=== PATIENT | male | born 1990 | race Caucasian/White ===

== ENCOUNTER 2021-05-29 16:39 | Emergency (ER) | payer OTHER, SELFPAY ==
[2021-05-29 16:46] VITALS: BP 140/85; PULSE 85; RESP 15; TEMP 36.9; O2SAT 96; BMI 29.2
--- NOTE | 2021-05-29 16:59 | ED.URI ---
HPI - URI/Sore Throat <DEMETRICE Swift - Last Filed: 05/29/21 18:16> General Chief Complaint: Upper Respiratory Symptoms Stated Complaint: sore throat since tuesday Time Seen by Provider: 05/29/21 16:59 Source: patient Mode of arrival: Ambulatory History of Present Illness HPI Narrative: 30-year-old male presents to the emergency department for a sore throat for 5 days. Patient was tested for COVID on Tuesday and this was negative. Patient denies any discharge drainage coming from his throat, he denies any difficulty swallowing, denies any muffled voice, or drooling. Patient denies any difficulty breathing, fever, worsening of his symptoms, nausea or vomiting. Patient requests a strep test today he reports that he is having the test and a COVID test which were negative. Denies any shortness of breath, chest pain, endorses having a runny nose. Able to tolerate fluids by mouth: Yes Treatments prior to arrival: acetaminophen, ibuprofen, cold medicine and other (Tea and honey, Sudafed) Related Data Allergies Allergy/AdvReac Type Severity Reaction Status Date / Time No Known Drug Allergies Allergy Verified 05/29/21 16:46 Review of Systems <DEMETRICE Swift - Last Filed: 05/29/21 18:16> Review of Systems Narrative: General: denies fever, chills Head/Neck: denies headache, neck pain, endorses sore throat, and pain when he swallows Eyes: denies visual changes, eye pain Cardio: denies chest pain, palpitations Respiratory: denies shortness of breath, cough GI: denies abdominal pain, nausea, vomiting, or diarrhea : denies dysuria, hematuria MSK: denies joint pain, muscle weakness Skin: denies rash, itching Neuro: denies numbness, tingling Patient History <DEMETRICE Swift - Last Filed: 05/29/21 18:16> Social History Smoking Status: Unknown if ever smoked Smoking Status: Unknown if ever smoked alcohol intake frequency: holidays/special occasions only Substance Use Type: does not use Exam <DEMETRICE Swift - Last Filed: 05/29/21 18:16> Narrative Exam Narrative: Independently reviewed vitals signs and nursing notes. General: Awake, alert, nontoxic, no cardiorespiratory distress Head/Neck: Atraumatic, neck full range of motion, mild lymphadenopathy of his anterior cervical nodes Eyes: EOMI, conjunctiva normal Nose: nares patent, no rhinorrhea Mouth/Throat: moist mucus membranes, posterior pharynx mildly erythematous, tonsils are 2+ without exudate, patient has 1 small lesion in his oropharynx on the left side of his cheek which appears to be a area where he bit previously. There is no drainage. Cardio: Regular rate and rhythm, no peripheral edema Respiratory: respirations unlabored without wheezing, stridor, or rales. No retractions. GI: Abdomen soft, nontender MSK: Moves all extremities, neurovascularly intact Skin: Normal capillary refill, no rash Neuro: Normal speech and cognition, normal gait Initial Vital Signs Initial Vital Signs: Vital Signs Temperature 98.4 F 05/29/21 16:46 Pulse Rate 85 05/29/21 16:46 Respiratory Rate 15 05/29/21 16:46 Blood Pressure 140/85 05/29/21 16:46 Pulse Oximetry 96 05/29/21 16:46 Course <DEMETRICE Swift - Last Filed: 05/29/21 18:16> Orders Ordered: Discontinued Medications Dexamethasone (Dexamethasone 10 Mg/Ml Vial) 10 mg PO NOW ONE Stop: 05/29/21 17:16 Last Admin: 05/29/21 17:32 Dose: 10 mg Documented by: ALIDA Vital Signs Vital signs: Vital Signs - 8 hr 05/29/21 16:46 Temperature 98.4 F Pulse Rate 85 Respiratory Rate 15 Blood Pressure 140/85 Pulse Oximetry 96 [facility] - URI/Sore Throat <DEMETRICE Swift - Last Filed: 05/29/21 18:16> Lab Data Labs: Point of Care Testing Rapid Strep A Negative [facility] Narrative Medical decision making narrative: 30-year-old male presents to emergency department with pharyngitis for 5 days. Patient's strep test today was negative for strep today, his prior COVID and influenza test were also negative on Tuesday. Patient is nontoxic appearing, without significant erythema of his throat, or any other symptoms aside from a runny nose. This is most likely a viral syndrome causing a viral pharyngitis. Patient's uvula was midline on exam, no exudate on tonsils, differential includes retropharyngeal and parapharyngeal abscess although less likely, strep G or C infection, tonsillitis, postnasal drip, or submandibular abscess. Patient was given a dose of Decadron in the emergency department and understands to return to the emergency department if he has any worsening of his symptoms or if he develops a high fever. Patient Is appropriate and amenable to discharge home. Vital signs are stable on repeat examination is unremarkable. Patient has been informed of results. Patient has been given strict return to ER precautions for any new or worsening symptoms. Patient understands to follow up closely with outpatient providers as instructed. Patient understands plan and agrees to discharge home. All questions and concerns answered at this time. Discharge Plan Departure Patient Disposition: Home Clinical Impression: Pharyngitis Instructions: DI for Pharyngitis/Tonsillopharyngitis -- Adult Activity Restrictions/Additional Instructions: Patient left prior to receiving discharge instructions *What to do: *Please continue to take your regular medications as directed. [ ] New medication prescriptions sent to your pharmacy: [ ] [ ] New medication written as a paper prescription [ ] No new medications given *Please follow up with your primary care provider in 2-3 days, call for an appointment. Let them know you were seen in the Emergency Department and that we ask that you be seen in follow up. We will electronically transmit a record of today's note if your PCP is in our system *If you do not have a primary care provider please contact the [facility] Resource line at [phone]. They will ask some questions about your medical history and help get you set up with a doctor in the community. *Return to Emergency Department if you should have any new, worsening or concerning symptoms, such as [fever greater than 101F, chills, worsening pain, persistent vomiting or other bothersome symptoms]
[2021-05-29] MEDS: DEXAMETHASONE 10 MG/ML VIAL PO (17:32)
== END 2021-05-29 18:20 | disposition home or self-care (01) ==
PROVIDERS: Emergency Provider Nurse Practitioner Critical Care Medicine
DX: J02.9 Acute pharyngitis, unspecified (principal)
CPT/HCPCS: 87880; 99283; J1100

== ENCOUNTER → 2021-11-03 10:04 | Outpatient (CLI) | payer OTHER, SELFPAY ==
--- NOTE | 2021-11-03 | DI.MRI.S_ITS ---
PROCEDURE: MR SHOULDER RT W CON INDICATIONS: Right Shoulder Pain TECHNIQUE: After the administration of 12 mL of dilute intra-articular Gadolinium contrast, oblique coronal T1 and T2 spin echo with fat saturation, oblique sagittal T1 spin echo with and without fat saturation, oblique sagittal T2 fast spin echo with fat saturation, axial T1 spin echo with fat saturation through the shoulder. COMPARISON: None. FINDINGS: Image quality: Excellent. Rotator cuff: Mild T2 signal elevation throughout the supraspinatus and infraspinatus tendons at the humeral insertion sites extending to the musculotendinous junction, indicating tendinopathy. Low-grade partial-thickness intrasubstance tearing of the mid and upper subscapularis tendon at the humeral insertion site extending the musculotendinous junction. The supraspinatus, infraspinatus, and subscapularis tendons otherwise appear intact throughout. No rotator cuff muscle atrophy on sagittal images. Bones and bursae: No bone marrow contusions or fractures. Moderate acromioclavicular joint degeneration. The acromion demonstrates conventional anatomy, without an os acromiale. Capsule and soft tissues: There is undercutting of the posterosuperior labrum. The long head of the biceps tendon demonstrates normal location and morphology. The rotator interval appears normal, without fibrosis. The coracohumeral ligament is of normal thickness. No intra-articular bodies. IMPRESSION: 1. Supraspinatus and infraspinatus tendinopathy. 2. Low-grade partial-thickness tearing of the subscapularis. No full-thickness rotator cuff tear. 3. Posterosuperior glenoid labral tear. 4. Acromioclavicular joint osteoarthritis. Dictated by: Anny Maravilla M.D. on 11/03/2021 at 11:55 Approved by: Anny Maravilla M.D. on 11/03/2021 at 11:56
--- NOTE | 2021-11-03 | DI.RAD.S_ITS ---
PROCEDURE: FL SHOULDER INJECTION MR/CT RT INDICATIONS: Right Shoulder Pain COMPARISON: None. TECHNIQUE: The indications, alternatives, benefits, risks, and complications of the procedure were explained to the patient. Written informed consent was obtained and placed in the chart. The shoulder was examined fluoroscopically and a site for needle placement chosen for entry into the glenohumeral joint from an anterior approach. The skin was prepped and draped in a sterile fashion, and 1% lidocaine infiltrated from skin down to joint capsule. A spinal needle was inserted into the glenohumeral joint, and a small amount of iodinated contrast media injected to confirm intra-articular placement of the needle tip. This was followed by approximately 12 mL dilute solution of a gadolinium containing MR contrast agent. The needle was removed and a dressing was applied. The patient was given postprocedural instructions and sent to the MR suite for MR imaging. FINDINGS: A single fluoroscopic spot image demonstrates intra-articular location of injected iodinated contrast. IMPRESSION: Successful fluoroscopically guided administration of dilute Gadolinium solution into the shoulder joint for MR arthrogram. Dictated by: Cheryl Clark MD, PhD on 11/03/2021 at 12:33 Approved by: Cheryl Clark MD, PhD on 11/03/2021 at 12:33
== END ==
DX: M75.111 Incomplete rotator cuff tear or rupture of right shoulder, not specified as traumatic (principal); M19.011 Primary osteoarthritis, right shoulder; S43.491A Other sprain of right shoulder joint, initial encounter; M25.511 Pain in right shoulder
CPT/HCPCS: 23350; 73222; 77002

== ENCOUNTER 2022-04-08 20:59 | Emergency (ER) | payer OTHER, SELFPAY ==
[2022-04-08 21:40] VITALS: BP 137/77; PULSE 100; RESP 18; TEMP 36; O2SAT 99; BMI 30.7
[2022-04-08 23:32] LABS: Bacteria Urine None Seen; RBC Urine 1-5/HPF (0-5/HPF); WBC Urine None Seen (0-5/HPF)
[2022-04-09] MEDS: KETOROLAC 30 MG/ML VIAL IM (00:30)
--- NOTE | 2022-04-09 00:34 | DI.CT.S_ITS ---
PROCEDURE: CT KIDNEY URETER BLADDER (KUB) INDICATIONS: Right-sided flank pain, hematuria, eval for stone TECHNIQUE: Axial sections were acquired from the lung bases to the pubic symphysis. Coronal and sagittal reformats were performed. For radiation dose reduction, the following was used: automated exposure control, adjustment of mA and/or kV according to patient size. COMPARISON: None. FINDINGS: Image quality: Excellent. Lung bases: Unremarkable. Heart: No significant findings. URINARY: Right Kidney: No stones or hydronephrosis. Right Ureter: No hydroureter. Left Kidney: No stones or hydronephrosis. Left Ureter: No hydroureter. Bladder: Normal wall thickness. No stones. ABDOMEN: Liver: Unremarkable. Gallbladder: Within normal limits. Biliary ducts: Unremarkable. Pancreas: Unremarkable. Spleen: Unremarkable. Adrenal Glands: Unremarkable. Stomach and Bowel: Stomach, small bowel loops, and colon are unremarkable. Appendix is visualized and is within normal limits. Sigmoid diverticulosis is seen without signal colon wall thickening or mesenteric fat stranding. No abscess collection. Peritoneum: No abnormal intraperitoneal fluid. No free air. Ventral Wall: No hernia. Abdominal Nodes: No enlarged retroperitoneal or mesenteric lymph nodes. Vessels: Aorta and inferior vena cava are normal in size. PELVIS: Pelvic Organs: Unremarkable. Pelvic Nodes: Unremarkable. Miscellaneous: Small right inguinal hernia is seen containing fat only. Bones: No suspicious bony lesion. No acute vertebral body compression fracture. IMPRESSION: 1. No renal stones or hydronephrosis. No hydroureter. Normal appearing urinary bladder. 2. Normal appendix. No bowel obstruction. No free fluid or free air. Sigmoid diverticulosis without CT evidence diverticulitis. Dictated by: Paul Olivo M.D. on 04/09/2022 at 0:55 Approved by: Paul Olivo M.D. on 04/09/2022 at 0:57
--- NOTE | 2022-04-09 00:34 | ED_ITS ---
HPI - General Adult General Chief complaint: Urogenital-Male Stated complaint: thinks kidney infection Time Seen by Provider: 04/08/22 22:38 Source: patient Mode of arrival: Ambulatory Limitations: no limitations History of Present Illness HPI narrative: Patient is a 31-year-old male who is here for evaluation of concern for a kidney infection. Over the weekend the patient started taking a testosterone booster. Since then he has had pain in his lower back. He is also had urinary frequency and urgency. He is never had a urinary tract infection in the past has never had a kidney stone in the past. He also states that he is having some left eye irritation. He denies any concern about sexually transmitted infections. Related Data Allergies Allergy/AdvReac Type Severity Reaction Status Date / Time No Known Drug Allergies Allergy Verified 05/29/21 16:46 Review of Systems Constitutional Constitutional: Reports system reviewed and no additional complaints, except as documented Gastrointestinal Gastrointestinal: Reports system reviewed and no additional complaints, except as documented Genitourinary Genitourinary: Reports system reviewed and no additional complaints, except as documented Musculoskeletal Musculoskeletal: Reports system reviewed and no additional complaints, except as documented Patient History Medical History Healthy adult Social History Smoking Status: Unknown if ever smoked Smoking Status: Unknown if ever smoked alcohol intake frequency: holidays/special occasions only Substance Use Type: does not use Exam Initial Vital Signs Initial Vital Signs: Vital Signs Temperature 96.8 F L 04/08/22 21:40 Pulse Rate 100 H 04/08/22 21:40 Respiratory Rate 18 04/08/22 21:40 Blood Pressure 137/77 04/08/22 21:40 Pulse Oximetry 99 04/08/22 21:40 Oxygen Delivery Method 04/08/22 21:40 HENSC Head: normal to inspection and normocephalic Eyes Other: Mild left eye redness without drainage Resp Effort & Inspection: normal respiratory effort Cardio Rate: regular rate GI Inspection: normal to inspection Back/Spine/Pelvis Back: No CVA tenderness Neuro General: patient alert, patient awake and moves all extremities Course Orders Ordered: ED Orders 04/08/22 22:59 Urine Culture Stat Urine Microscopic Stat 04/09/22 00:34 CT kidney ureter bladder (KUB) Stat 04/09/22 00:50 Basic Metabolic Panel Stat Complete Blood Count AUTO DIFF Stat Discontinued Medications Erythromycin (Erythromycin Ophth 1 Gm Oint) 1 applic EYE-LEFT NOW ONE Stop: 04/09/22 01:28 Last Admin: 04/09/22 01:38 Dose: 1 applic Documented By: GUERRERO Ketorolac Tromethamine (Ketorolac 30 Mg/Ml Vial) 30 mg IM NOW ONE Stop: 04/09/22 00:22 Last Admin: 04/09/22 00:30 Dose: 30 mg Documented By: NR Vital Signs Vital signs: Vital Signs - 8 hr 04/08/22 21:40 Temperature 96.8 F L Pulse Rate 100 H Respiratory Rate 18 Blood Pressure 137/77 Pulse Oximetry 99 Oxygen Delivery Method Room Air Medical Decision Making Lab Data Lab results reviewed: Yes I reviewed the patient's lab results. Result diagrams: 04/09/22 00:50 04/09/22 00:50 Labs: Lab Results 04/08/22 04/09/22 04/09/22 Range/Units 22:59 00:50 00:50 WBC 9.2 (4.5-11.0) X10^3/uL RBC 5.11 (4.5-5.9) X10^6/uL Hgb 14.9 (13.5-17.5) g/dL Hct 42.8 (41-53) % MCV 83.8 (80-100) fL MCH 29.1 (26-34) PG MCHC 34.7 (30-36) % RDW 13.2 (11.6-14.8) % Plt Count 340 (150-400) X10^3/uL Neut % (Auto) 46.1 L (50-75) % Lymph % (Auto) 42.6 H (25-40) % [place] % (Auto) 6.5 (3-14) % Eos % (Auto) 3.4 (2-4) % Baso % (Auto) 1.4 (0-2) % Neut # (Auto) 4200 (6988-1566) /uL Lymph # (Auto) 3900 (7382-1144) /uL [place] # (Auto) 600 (0-900) /uL Eos # (Auto) 300 (0-450) /uL Baso # (Auto) 100 (0-100) /uL Sodium 139 (137-145) mmol/L Potassium 3.9 (3.4-5.1) mmol/L Chloride 100 (98-107) mmol/L Carbon Dioxide 29 (22-32) mmol/L BUN 12 (9-20) mg/dL Creatinine 0.89 (0.66-1.25) mg/dL Estimated GFR > 60 (>60) mL/min BUN/Creatinine Ratio 13.5 (6-22) Glucose 101 H (70-100) mg/dL Calcium 9.0 (8.4-10.2) mg/dL Urine RBC 1-5/hpf (0-5/HPF) Urine WBC None seen (0-5/HPF) Urine Bacteria None seen (None) Ur Culture Indicated? Culture not indicate Micro UA Comment * Urine Dip Bedside Urine Glucose Negative Bedside Urine Bilirubin - Negative Bedside Urine Ketone - Negative Urine Specific [place] 1.015 Bedside Urine Occult Blood + Bedside Urine pH 6.0 Bedside Urine Protein - Negative Bedside Urine Urobilinogen - Negative Bedside Urine Nitrite - Negative Bedside Urine Leukocytes - Negative Esterase Point of care testing: Urine Dip Bedside Urine Glucose Negative Bedside Urine Bilirubin - Negative Bedside Urine Ketone - Negative Urine Specific [place] 1.015 Bedside Urine Occult Blood + Bedside Urine pH 6.0 Bedside Urine Protein - Negative Bedside Urine Urobilinogen - Negative Bedside Urine Nitrite - Negative Bedside Urine Leukocytes - Negative Esterase Imaging Data CT scan - abdomen/pelvis: Radiologist's Impression: [place] [address] CT Scan Report Signed Patient: Parmjit Rodrigues Jr MR#: [id number] : 1990 Acct:[id number] Age/Sex: 31 / M Date of Service: 04/09/22 Loc: ED Accession Number: [id number] ?? Procedure: CT kidney ureter bladder (KUB) Ordering Provider: Sam Persaud D.O. PROCEDURE:? CT KIDNEY URETER BLADDER (KUB) ? INDICATIONS:? Right-sided flank pain, hematuria, eval for stone ? TECHNIQUE:? Axial sections were acquired from the lung bases to the pubic symphysis.? Coronal and sagittal reformats were performed.? For radiation dose reduction, the following was used: ?automated exposure control, adjustment of mA and/or kV according to patient size.? ? COMPARISON:? None. ? FINDINGS:? Image quality:? Excellent.? ? Lung bases:? Unremarkable.? ? Heart:? No significant findings. ? URINARY: Right Kidney:? No stones or hydronephrosis. Right Ureter:? No hydroureter. ? Left Kidney:? No stones or hydronephrosis. Left Ureter:? No hydroureter. ? Bladder:? Normal wall thickness. No stones. ? ? ? ABDOMEN: Liver:? Unremarkable.? ? Gallbladder:? Within normal limits. Biliary ducts:? Unremarkable.? ? Pancreas:? Unremarkable.? ? Spleen:? Unremarkable.? ? Adrenal Glands:? Unremarkable.? ? ? Stomach and Bowel:? Stomach, small bowel loops, and colon are unremarkable.? Appendix is visualized and is within normal limits.? Sigmoid diverticulosis is seen without signal colon wall thickening or mesenteric fat stranding.? No abscess collection. Peritoneum:? No abnormal intraperitoneal fluid.? No free air.? ? Ventral Wall: ? No hernia.? Abdominal Nodes:? No enlarged retroperitoneal or mesenteric lymph nodes.? Vessels:? Aorta and inferior vena cava are normal in size.? ? PELVIS: Pelvic Organs:? Unremarkable.? ? Pelvic Nodes: Unremarkable. Miscellaneous:? Small right inguinal hernia is seen containing fat only. ? Bones:? No suspicious bony lesion.? No acute vertebral body compression fracture. ? IMPRESSION:? 1. No renal stones or hydronephrosis.? No hydroureter.? Normal appearing urinary bladder. 2. Normal appendix.? No bowel obstruction.? No free fluid or free air.? Sigmoid diverticulosis without CT evidence diverticulitis.? ? Dictated by: Paul Olivo M.D. on 04/09/2022 at 0:55 ? ? Approved by: Paul Olivo M.D. on 04/09/2022 at 0:57?? MDM Narrative Medical decision making narrative: Patient does have hematuria but no other signs of infection. CT scan shows no signs of ureteral/kidney stones. His kidney function is unremarkable. No indication for antibiotics. No indication for further radiologic studies. Will give him erythromycin ointment for the left eye conjunctivitis. Informed him that he should follow-up with his primary doctor to discuss referral to see Urology given his hematuria. He was given return precautions. He expressed understanding and agreement. Discharge Plan Departure Patient Disposition: Home Clinical Impression: Hematuria, Conjunctivitis Instructions: DI for Hematuria Activity Restrictions/Additional Instructions: You can take Tylenol/ibuprofen for any discomfort. Be sure you are staying hydrated. You do need follow-up with your primary doctor to make sure that the blood in your urine has cleared up. This can be in the next couple weeks. Return to the emergency department for any new symptoms. Visit Report Forms: Patient Portal/API
[2022-04-09 01:02] LABS: Add Manual Diff / Slide Review NO; Basophils Absolute Auto 100 /uL (0-100); Basophils Percent Auto 1.4 % (0-2); Eosinophils Absolute Auto 300 /uL (0-450); Eosinophils Percent Auto 3.4 % (2-4); Hematocrit 42.8 % (41-53); Hemoglobin 14.9 g/dL (13.5-17.5); Lymphocytes Absolute Auto 3900 /uL (1100-4500); Lymphocytes Percent Auto 42.6 % (25-40); Mean Corpuscular HGB Conc 34.7 % (30-36); Mean Corpuscular Hemoglobin 29.1 PG (26-34); Mean Corpuscular Volume 83.8 fL (80-100); Monocytes Absolute Auto 600 /uL (0-900); Monocytes Percent Auto 6.5 % (3-14); Neutrophils Absolute Auto 4200 /uL (1500-7000); Neutrophils Percent Auto 46.1 % (50-75); Platelet Count 340 X10^3/uL (150-400); Red Blood Cell Count 5.11 X10^6/uL (4.5-5.9); Red Cell Distribution Width 13.2 % (11.6-14.8); White Blood Cell Count 9.2 X10^3/uL (4.5-11.0)
[2022-04-09 01:07] LABS: BUN Creatinine Ratio 13.5 (6-22); Blood Urea Nitrogen 12 mg/dL (9-20); Carbon Dioxide 29 mmol/L (22-32); Chloride 100 mmol/L (98-107); Estimated Glomerular Filt Rate > 60 mL/min (>60); Glucose 101 mg/dL (70-100); HEMOLYSIS 33 (0-50); Potassium 3.9 mmol/L (3.4-5.1); Sodium 139 mmol/L (137-145)
[2022-04-09] MEDS: ERYTHROMYCIN OPHTH 1 GM OINT 1 APPLIC EYE-LEFT (01:38)
== END 2022-04-09 01:45 | disposition home or self-care (01) ==
PROVIDERS: Emergency Provider Emergency Medicine
DX: R31.9 Hematuria, unspecified (principal); H10.9 Unspecified conjunctivitis; M54.50 Low back pain, unspecified
CPT/HCPCS: 74176; 80048; 81003; 81015; 85025; 87086; 96372; 99283; 99284; J1885

== ENCOUNTER 2023-11-19 12:51 | Emergency (ER) | payer OTHER, SELFPAY ==
[2023-11-19] VITALS (28 sets, daily range): BP systolic 122–149; BP diastolic 62–92; PULSE 71–96; RESP 13–42; O2SAT 92–100; BMI 33.4
--- NOTE | 2023-11-19 | DI.RAD.S_ITS ---
PROCEDURE: XR SHOULDER RT MIN 2V INDICATIONS: POST REDUCTION TECHNIQUE: 2 views of the shoulder were acquired. COMPARISON: [facility], CR, XR SHOULDER RT MIN 2V, 11/19/2023, 13:14. FINDINGS: Bones: Interval reduction of the glenohumeral joint. Persistent large fracture fragment along the posterior humeral head consistent with moderately displaced greater tuberosity fracture Soft tissues: No suspicious soft tissue calcifications. IMPRESSION: Interval reduction of the glenohumeral joint in near anatomic alignment. Persistent comminuted humeral head fracture. Dictated by: Obed Rosas M.D. on 11/19/2023 at 16:06 Approved by: Obed Rosas M.D. on 11/19/2023 at 16:09
--- NOTE | 2023-11-19 13:00 | DI.RAD.S_ITS ---
PROCEDURE: XR SHOULDER RT MIN 2V INDICATIONS: trauma TECHNIQUE: 2 views of the shoulder were acquired. COMPARISON: None. FINDINGS: Bones: There is a large fracture fragment along the posterior humerus measuring at least 6.2 centimeters involving the greater tubercle. The humeral head is positioned anteriorly and inferiorly to the glenoid fossa. No suspicious bony lesions. Visualized ribs appear intact. Soft tissues: No suspicious soft tissue calcifications. IMPRESSION: Humeral head fracture and dislocation. Dictated by: Obed Rosas M.D. on 11/19/2023 at 12:29 Approved by: Obed Rosas M.D. on 11/19/2023 at 12:36
[2023-11-19] MEDS: HYDROMORPHONE 0.5 MG INJ IV (13:11)
--- NOTE | 2023-11-19 13:46 | DI.CT.S_ITS ---
PROCEDURE: CT UE RT WO CON INDICATIONS: shoulder TECHNIQUE: Noncontrast 0.75 mm thick sections acquired from the acromioclavicular joint to the inferior scapula, with coronal and sagittal reformatting. COMPARISON: None. FINDINGS: Image quality: Excellent. Bones: There is total anterior dislocation of the humeral head positioned anteriorly and inferiorly from the glenoid fossa. Large comminuted fracture of the posterior and lateral aspect of the humeral head involving the greater tuberosity with fracture lines extending to the lesser tuberosity with the largest fracture fragment measuring 5.6 centimeters, significantly displaced. Numerous tiny osseous fragments within the fracture bed. Additional nondisplaced fracture fragments involving the lesser tuberosity. There is prominent soft tissue swelling there is a moderate effusion. IMPRESSION: Fracture dislocation of the humeral head with at least 1 significantly displaced fracture fragment. Dictated by: Obed Rosas M.D. on 11/19/2023 at 13:51 Approved by: Obed Rosas M.D. on 11/19/2023 at 14:09
--- NOTE | 2023-11-19 13:51 | ED_ITS ---
HPI - Extremity Injury (Upper) General Chief Complaint: Extremity Injury, Upper Stated Complaint: dislocation to R arm Time Seen by Provider: 11/19/23 13:46 Source: patient and EMS Mode of arrival: EMS History of Present Illness HPI narrative: Patient healthy 33-year-old male presents today with right shoulder pain. He reports that he was sliding into [employer] when he had sudden onset of right shoulder pain. He went to an urgent care they tried to reduce assuming that it was a shoulder dislocation patient reports that the pain got significantly worse during that procedure. He has no numbness or tingling in his hand no decreased range of movement of his hand but significant pain in right shoulder. No other injury Received 150 of fentanyl prior to arrival Related Data Previous Rx's Medication Instructions Recorded hydrocodone 5 mg-acetaminophen 325 1 tab PO Q6H PRN pain #10 tabs 11/19/23 mg tablet Allergies Allergy/AdvReac Type Severity Reaction Status Date / Time No Known Drug Allergies Allergy Verified 11/19/23 12:53 Patient History Medical History Healthy adult Social History Smoking Status: Former smoker Smoking Status: Former smoker alcohol intake frequency: holidays/special occasions only Substance Use Type: does not use Exam Initial Vital Signs Initial Vital Signs: Vital Signs Pulse Rate 84 11/19/23 12:53 Respiratory Rate 18 11/19/23 12:53 Blood Pressure 130/68 11/19/23 12:53 Pulse Oximetry 98 11/19/23 12:53 Oxygen Delivery Method Room Air 11/19/23 12:53 GENERAL: Alert 33-year-old male CARDIOVASCULAR: peripheral pulses in tact, cap refill <2 sec RESPIRATORY: No respiratory distress, speaks in full sentences without difficulty EXTREMITIES: Normal range of motion, no clubbing or edema. Neurovascularly intact Right shoulder in sling no clavicle step-off there shoulder AC step-off sensation in deltoid intact strong distal radial pulse good radial median and ulnar nerve sensation and movement NEUROLOGICAL: Cranial nerves II through XII grossly intact. Normal gait and speech. SKIN: Warm, dry, no petechiae, no rashes or lesions. Procedures Orthopedic Fracture Reduction Fracture #1: Time Out Performed: Yes Side: right Fracture Reduction Location: humerus Analgesia: procedural sedation Technique: traction/counter-traction Post Reduction X-rays Demonstrate: anatomical reduction Post-reduction neuro exam: intact and no change Post-reduction vascular exam: intact and no change Orthopedic Splinting/Casting Injury #1: Side: right Upper Extremity Injury Location: shoulder Upper Extremity Immobilizer: sling/shoulder immobilizer Procedural Sedation Consent signed: Yes Indication: fracture/dislocation reduction ASA Class: II Mallampati Airway Classification: Class II IV Propofol dose (mg): 105 Intraservice time/total sedation time (min): 14 ED Sedation Level: Moderate (Concious) Patient Tolerated Procedure: Well and No complications Complications: none Course Orders Ordered: ED Orders 11/19/23 13:00 XR shoulder RT min 2V Stat 11/19/23 13:46 CT UE RT wo con Stat Discontinued Medications Hydrocodone Bitart/Acetaminophen (Hydrocodone/Acet 5/325 Prepack) 1 bottle MISC DIRECTED ONE Stop: 11/19/23 17:30 Last Admin: 11/19/23 17:33 Dose: 1 bottle Documented By: ANEESH Hydromorphone HCl (Hydromorphone 0.5 Mg Inj) 0.5 mg IV NOW ONE Stop: 11/19/23 13:09 Last Admin: 11/19/23 13:11 Dose: 0.5 mg Documented By: CAMILLA Hydromorphone HCl (Hydromorphone 1 Mg Inj) 1 mg IV NOW ONE Stop: 11/19/23 13:44 Last Admin: 11/19/23 13:52 Dose: 1 mg Documented By: ANEESH Sodium Chloride (Normal Saline 0.9%) 1,000 mls @ 1,000 mls/hr IV BOLUS ONE Stop: 11/19/23 16:26 Last Infusion: 11/19/23 17:33 Dose: 0 mls/hr Documented By: Admin: 11/19/23 16:42 Dose: 1,000 mls/hr Documented By: ANEESH Propofol (Propofol 200 Mg/20 Ml Vial) 105 mg 1 mg/kg (105 mg) IV NOW ONE Stop: 11/19/23 15:28 Last Admin: 11/19/23 16:42 Dose: 105 mg Documented By: ANEESH Vital Signs Vital signs: Vital Signs - 8 hr 11/19/23 12:53 11/19/23 12:56 11/19/23 12:57 Pulse Rate 84 85 Respiratory Rate 18 Blood Pressure 130/68 130/68 Pulse Oximetry 98 99 Oxygen Delivery Method Room Air 11/19/23 13:00 11/19/23 13:00 11/19/23 13:30 Pulse Rate 87 93 H Respiratory Rate Blood Pressure 124/64 Pulse Oximetry 97 97 Oxygen Delivery Method 11/19/23 13:30 11/19/23 14:00 11/19/23 14:00 Pulse Rate 84 Respiratory Rate Blood Pressure 130/92 H 130/80 Pulse Oximetry 95 Oxygen Delivery Method 11/19/23 14:30 11/19/23 14:38 11/19/23 14:38 Pulse Rate 76 75 Respiratory Rate Blood Pressure 135/77 Pulse Oximetry 96 95 Oxygen Delivery Method 11/19/23 15:00 11/19/23 15:00 11/19/23 15:30 Pulse Rate 96 H Respiratory Rate Blood Pressure 131/76 122/80 Pulse Oximetry 94 Oxygen Delivery Method 11/19/23 15:30 11/19/23 15:50 11/19/23 15:50 Pulse Rate 87 81 Respiratory Rate 19 Blood Pressure 134/77 Pulse Oximetry 95 96 Oxygen Delivery Method 11/19/23 15:55 11/19/23 15:55 11/19/23 16:00 Pulse Rate 86 83 Respiratory Rate 21 19 Blood Pressure 135/73 Pulse Oximetry 95 92 Oxygen Delivery Method 11/19/23 16:00 11/19/23 16:05 11/19/23 16:05 Pulse Rate 71 Respiratory Rate 14 Blood Pressure 130/72 131/74 Pulse Oximetry 93 Oxygen Delivery Method 11/19/23 16:10 11/19/23 16:10 11/19/23 16:15 Pulse Rate 81 88 Respiratory Rate 15 15 Blood Pressure 146/67 H Pulse Oximetry 95 95 Oxygen Delivery Method 11/19/23 16:15 11/19/23 16:20 11/19/23 16:20 Pulse Rate 92 H Respiratory Rate 15 Blood Pressure 143/69 H 135/69 Pulse Oximetry 95 Oxygen Delivery Method 11/19/23 16:25 11/19/23 16:25 11/19/23 16:30 Pulse Rate 86 90 Respiratory Rate 14 14 Blood Pressure 149/77 H Pulse Oximetry 95 95 Oxygen Delivery Method 11/19/23 16:30 11/19/23 16:35 11/19/23 16:35 Pulse Rate 94 H Respiratory Rate 18 Blood Pressure 133/64 143/79 H Pulse Oximetry 98 Oxygen Delivery Method 11/19/23 16:40 11/19/23 16:40 11/19/23 16:42 Pulse Rate 92 H 90 Respiratory Rate 20 20 Blood Pressure 139/82 132/62 Pulse Oximetry 98 97 Oxygen Delivery Method 11/19/23 16:45 11/19/23 16:45 11/19/23 16:50 Pulse Rate 87 79 Respiratory Rate 42 H 22 Blood Pressure 132/82 Pulse Oximetry 95 100 Oxygen Delivery Method 11/19/23 16:50 11/19/23 16:55 11/19/23 16:55 Pulse Rate 83 Respiratory Rate 19 Blood Pressure 130/80 139/78 Pulse Oximetry 97 Oxygen Delivery Method 11/19/23 17:00 11/19/23 17:00 11/19/23 17:05 Pulse Rate 85 82 Respiratory Rate 18 13 Blood Pressure 135/77 Pulse Oximetry 99 99 Oxygen Delivery Method 11/19/23 17:05 11/19/23 17:10 11/19/23 17:10 Pulse Rate 81 Respiratory Rate 18 Blood Pressure 139/72 127/73 Pulse Oximetry 100 Oxygen Delivery Method MDM - Extremity Injury (Upper) Imaging Data Extremity x-ray #1: Radiologist's Impression: PROCEDURE: XR SHOULDER RT MIN 2V INDICATIONS: POST REDUCTION TECHNIQUE: 2 views of the shoulder were acquired. [facility] 13:14. FINDINGS: Bones: Interval reduction of the glenohumeral joint. Persistent large fracture fragment along the posterior humeral head consistent with moderately displaced greater tuberosity fracture Soft tissues: No suspicious soft tissue calcifications. IMPRESSION: Interval reduction of the glenohumeral joint in near anatomic alignment. Persistent comminuted humeral head fracture. Dictated by: Obed Rosas M.D. on 11/19/2023 at 16:06 Extremity x-ray #2: Radiologist's Impression: PROCEDURE: XR SHOULDER RT MIN 2V INDICATIONS: trauma TECHNIQUE: 2 views of the shoulder were acquired. COMPARISON: None. FINDINGS: Bones: There is a large fracture fragment along the posterior humerus measuring at least 6.2 centimeters involving the greater tubercle. The humeral head is positioned anteriorly and inferiorly to the glenoid fossa. No suspicious bony lesions. Visualized ribs appear intact. Soft tissues: No suspicious soft tissue calcifications. IMPRESSION: Humeral head fracture and dislocation. Dictated by: Obed Rosas M.D. on 11/19/2023 at 12:29 CT UE: Radiologist's Impression: PROCEDURE: CT UE RT WO CON INDICATIONS: shoulder TECHNIQUE: Noncontrast 0.75 mm thick sections acquired from the acromioclavicular joint to the inferior scapula, with coronal and sagittal reformatting. COMPARISON: None. FINDINGS: Image quality: Excellent. Bones: There is total anterior dislocation of the humeral head positioned anteriorly and inferiorly from the glenoid fossa. Large comminuted fracture of the posterior and lateral aspect of the humeral head involving the greater tuberosity with fracture lines extending to the lesser tuberosity with the largest fracture fragment measuring 5.6 centimeters, significantly displaced. Numerous tiny osseous fragments within the fracture bed. Additional nondisplaced fracture fragments involving the lesser tuberosity. There is prominent soft tissue swelling there is a moderate effusion. IMPRESSION: Fracture dislocation of the humeral head with at least 1 significantly displaced fracture fragment. Dictated by: Obed Rosas M.D. on 11/19/2023 at 13:51 MDM Narrative Medical decision making narrative: Patient 33-year-old male presents today with right upper arm injury. He is found to have a fracture dislocation of the right humeral head. Significant humeral head fracture. Dr. Gaines updated on patient's symptoms test results including the CT states that it is okay to be reduced recommends follow-up in clinic Patient tolerated procedure sedation and reduction well. It was easily reduced. He is now placed back in a sling. No neurovascular deficits. Discharge Plan Departure Patient Disposition: Home Clinical Impression: Anterior dislocation of right shoulder, Hill-Sachs fracture Instructions: DI for Shoulder Dislocation Activity Restrictions/Additional Instructions: *You have been diagnosed with right shoulder dislocation Hill-Sachs fracture *What to do: At this time keep arm in sling. You may need to sleep sitting up. I do recommend that you call and follow-up with orthopedics. Not require surgery. *Continue to take medications as directed [place] 1 tablet every 6 hours if needed for severe pain Motrin 600 mg every 6 hours for [id number] pain *Follow up with your primary care provider in 2-3 days or call [phone] *Return to ER if you should have increasing pain numbness tingling weakness or any new, worsening or concerning symptoms CONTROLLED SUBSTANCE DISCHARGE (Narcotoic/benzodiazepine/Flexeril/Phenergan) 1. You have been prescribed narcotic medications, it does have acetaminophen/Tylenol/paracetamol in it, DO NOT TAKE MORE THAN 4,00mg in 24 hours of Tylenol. TRAMADOL DOES NOT CONTAIN TYLENOL 2. Please understand that we cannot provide further refills of narcotics, benzodiazepines or controlled substances through the ED and her pain management will need to be through your provider. 3. While on these medications you cannot drive or operate heavy machinery. 4. You cannot sign legal documents or perform any duties such as this. 5. As long as you're taking opiate pain medications he should also be taking a stool softener such as Colace, Dulcolax, MiraLAX or prune juice, to help avoid constipation. Prescriptions: New hydrocodone-acetaminophen 5-325 mg tablet 1 tab PO Q6H PRN (Reason: pain) Qty: 10 0RF Referrals: [facility] [Provider Group] Stand Alone Forms: Patient Portal/API
[2023-11-19] MEDS: HYDROMORPHONE 1 MG INJ IV (13:52)
[2023-11-19] MEDS: SODIUM CHLORIDE 0.9% 1,000 ML 1000 ML IV (16:42)
[2023-11-19] MEDS: propofoL 200 MG/20 ML VIAL 105 MG IV (16:42)
[2023-11-19] MEDS: HYDROCODONE/ACET 5/325 PREPACK 1 BOTTLE MISC (17:33)
== END 2023-11-19 17:52 | disposition home or self-care (01) ==
PROVIDERS: Emergency Provider Emergency Medicine
DX: S43.014A Anterior dislocation of right humerus, initial encounter (principal); S42.291A Other displaced fracture of upper end of right humerus, initial encounter for closed fracture; W18.30XA Fall on same level, unspecified, initial encounter; Y93.64 Activity, baseball
CPT/HCPCS: 24505; 73030; 73200; 96361; 96374; 96376; 99152; 99284; 99285; J1170; J2704

== ENCOUNTER 2023-11-21 12:27 | Emergency (ER) | payer OTHER, SELFPAY ==
[2023-11-21 12:48] VITALS: BP 168/89; PULSE 108; RESP 16; TEMP 36.4; O2SAT 98; BMI 33.4
--- NOTE | 2023-11-21 15:58 | PC.NURSE ---
Patient notified this RN that hes going to go home and be evaluated tomorrow at [facility].
--- NOTE | 2023-11-21 19:40 | ED.RECABL ---
HPI - Recheck/Abnormal Lab/Rx General Chief Complaint: Recheck/Abnormal Lab/Rx Stated Complaint: return, Rt arm injury Source: patient Mode of arrival: Ambulatory History of Present Illness HPI narrative: Patient left without being seen by provider Related Data Previous Rx's Medication Instructions Recorded hydrocodone 5 mg-acetaminophen 325 1 tab PO Q6H PRN pain #10 tabs 11/19/23 mg tablet Allergies Allergy/AdvReac Type Severity Reaction Status Date / Time No Known Drug Allergies Allergy Verified 11/21/23 12:48 Patient History Medical History Healthy adult Social History Smoking Status: Former smoker Smoking Status: Former smoker alcohol intake frequency: holidays/special occasions only Substance Use Type: does not use Exam Initial Vital Signs Initial Vital Signs: Vital Signs Temperature 97.5 F L 11/21/23 12:48 Pulse Rate 108 H 11/21/23 12:48 Respiratory Rate 16 11/21/23 12:48 Blood Pressure 168/89 H 11/21/23 12:48 Pulse Oximetry 98 11/21/23 12:48 Oxygen Delivery Method Room Air 11/21/23 12:48 Course Vital Signs Vital signs: Vital Signs - 8 hr 11/21/23 12:48 Temperature 97.5 F L Pulse Rate 108 H Respiratory Rate 16 Blood Pressure 168/89 H Pulse Oximetry 98 Oxygen Delivery Method Room Air Discharge Plan Departure Patient Disposition: Left Without Being Seen Clinical Impression: Patient left without being seen Prescriptions: No Action hydrocodone-acetaminophen 5-325 mg tablet 1 tab PO Q6H PRN (Reason: pain) Qty: 10 0RF
== END 2023-11-21 15:59 | disposition left against medical advice (07) ==
PROVIDERS: Emergency Provider Emergency Medicine
CPT/HCPCS: 99281

== ENCOUNTER → 2024-08-03 | Outpatient (CLI) | payer OTHER, SELFPAY ==
--- NOTE | 2024-08-03 08:13 | DI.RAD.S_ITS ---
PROCEDURE: FL ARTHROGRAM SHOULDER RT INDICATIONS: chronic right shoulder pain COMPARISON: [facility], CR, XR SHOULDER RT MIN 2V, 11/19/2023, 16:42. TECHNIQUE: The indications, alternatives, benefits, risks, and complications of the procedure were explained to the patient. Written informed consent was obtained and placed in the chart. The shoulder was examined fluoroscopically and a site for needle placement chosen for entry into the glenohumeral joint from an anterior approach. The skin was prepped and draped in a sterile fashion, and 1% lidocaine infiltrated from skin down to joint capsule. A spinal needle was inserted into the glenohumeral joint, and a small amount of iodinated contrast media injected to confirm intra-articular placement of the needle tip. This was followed by approximately 12 mL dilute solution of a gadolinium containing MR contrast agent. The needle was removed and a dressing was applied. The patient was given postprocedural instructions and sent to the MR suite for MR imaging. FINDINGS: A single fluoroscopic spot image demonstrates intra-articular location of injected iodinated contrast. IMPRESSION: Successful fluoroscopically guided administration of dilute Gadolinium solution into the shoulder joint for MR arthrogram. Approved by: Jules Howell M.D. on 08/03/2024 at 9:24
--- NOTE | 2024-08-03 08:14 | DI.MRI.S_ITS ---
PROCEDURE: MR SHOULDER RT W CON INDICATIONS: chronic right shoulder pain TECHNIQUE: After the administration of 12 mL of dilute intra-articular Gadolinium contrast, oblique coronal T1 and T2 spin echo with fat saturation, oblique sagittal T1 spin echo with and without fat saturation, oblique sagittal T2 fast spin echo with fat saturation, axial T1 spin echo with fat saturation through the shoulder. COMPARISON: [facility], CT, CT UE RT WO CON, 11/19/2023, 14:14. [facility], CR, XR SHOULDER RT MIN 2V, 11/19/2023, 16:42. [facility], RF, FL ARTHROGRAM SHOULDER RT, 08/03/2024, 8:38. [facility], MR, MR SHOULDER RT W CON, 11/03/2021, 10:26. FINDINGS: Image quality: Mild expected metal artifact related to patient's orthopedic hardware. Diagnostic information is obtained. Rotator cuff: The supraspinatus, infraspinatus, and subscapularis tendons appear intact throughout. No rotator cuff muscle atrophy on sagittal images. Bones and bursae: Postsurgical changes from prior greater tuberosity fracture fixation. Fracture appears healed with mild residual deformity. No acute osseous edema. No focal glenohumeral cartilage defect. Moderate degenerative changes at the acromioclavicular joint subchondral cystic changes and small marginal osteophytes. Small amount of noncommunicating fluid is seen in the subacromial/subdeltoid bursa. 6 x 3 x 4 mm filling defect is seen in the axillary recess. Capsule and soft tissues: Nondisplaced tearing of the superior labrum extending into the anterior superior and posterior superior labrum. Anterior inferior labrum appears diminutive without acute tearing. Proximal biceps long head tendon demonstrates mild tendinosis. Glenohumeral ligaments are intact. IMPRESSION: 1. Postsurgical changes from prior greater tuberosity fracture fixation. Fracture appears healed with mild residual osseous deformity. 2. Nondisplaced tearing of the superior labrum from anterior superior to posterior superior. 3. Mild proximal biceps long head tendinosis. 4. No significant rotator cuff tendon tearing. 5. Moderate acromioclavicular joint osteoarthrosis. 6. Filling defect measuring 6 mm in the axillary recess may represent a small intra-articular loose body versus focal synovial hypertrophy. Approved by: Jules Howell M.D. on 08/08/2024 at 16:18
[2024-08-03] MEDS: LIDOCAINE 1% 20 ML INJ (11:12)
[2024-08-03] MEDS: SODIUM CHLORIDE 0.9 % 20 ML VIAL IV (11:13)
== END ==
LOC: RAD 08:12
DX: M19.011 Primary osteoarthritis, right shoulder (principal); S43.431A Superior glenoid labrum lesion of right shoulder, initial encounter; S42.251S Displaced fracture of greater tuberosity of right humerus, sequela; M25.511 Pain in right shoulder
CPT/HCPCS: 23350; 73040; 73222; A9579; Q9967